=== PATIENT | female | born 1940 | race Caucasian/White ===

== ENCOUNTER → 2024-05-22 | Outpatient (CLI) | payer MEDICARE, SELFPAY ==
[2024-05-22 09:36] LABS: Anion Gap 8 (7-16); BUN/Creatinine Ratio 24 Ratio (12-20); Blood Urea Nitrogen 24 mg/dL (9-23); Calcium 9.7 mg/dL (8.3-10.6); Carbon Dioxide 28.8 mMol/L (20.0-31.0); Chloride 104 mMol/L (98-107); Glucose 141 mg/dL (74-106); Osmolality,Calculated 287 (275-295); Potassium 4.4 mMol/L (3.4-5.1); Sodium 141 mMol/L (136-145); eGFR 55 See Note
[2024-05-22 09:47] LABS: Glucose Estimated Average 143 mg/dL (80-131); Hemoglobin A1C 6.6 % Hgb (4.8-6.0)
== END | disposition home or self-care (01) ==
PROVIDERS: PCP Nurse Practitioner Family; Referring Provider Nurse Practitioner Family; Visit Provider Nurse Practitioner Family
DX: E11.9 Type 2 diabetes mellitus without complications (principal)
CPT/HCPCS: 36415; 80048; 83036

== ENCOUNTER → 2024-09-05 | Outpatient (CLI) | payer MEDICARE, SELFPAY ==
--- NOTE | 2024-09-05 10:37 | XR_ITS ---
Examination: Lumbar spine, 5 views Technique: Lumbar spine AP, lateral, coned lateral lower lumbar spine, bilateral obliques 5 views Exam date and time: September 05, 2024 1044 hours Comparison October 12, 2022 INDICATIONS: Patient fell 8 years ago with injury to lower back, lower back pain FINDINGS: Prominent osteopenia Lumbar levoscoliosis 20 degrees Advanced diffuse facet arthropathy Heavy abdominal aortic calcification Mild chronic osteoporotic wedging L5 L2, L1, moderate chronic osteoporotic compression T12 Diffuse lumbar degenerative disc disease, advanced L1-L2 IMPRESSION: Diffuse lumbar degenerative disc disease, advanced L1-L2
--- NOTE | 2024-09-05 10:37 | XR_ITS ---
Examination:Left hip AP, lateral, AP pelvis 3 views Technique: Hip AP lateral, AP pelvis, 3 views Exam date and time:September 05, 2024 1044 hours INDICATION: Patient fell 8 years ago with injury to the left hip, persistent left hip pain FINDINGS: Prominent osteopenia No right or left hip fracture or dislocation Moderate narrowing hip joints Bones of the pelvis intact IMPRESSION: Moderate bilateral hip osteoarthritis.
--- NOTE | 2024-09-05 10:37 | XR_ITS ---
Examination: Shoulder,right, 3 views Technique: Shoulder AP internal rotation, AP external rotation, Y view shoulder, 3 views Exam date and time :September 05, 2024 1044 hours INDICATIONS: Onset right shoulder pain beginning 2 years ago. FINDINGS: Prominent osteopenia Moderate narrowing glenohumeral joint No fracture or dislocation IMPRESSION: Moderate narrowing glenohumeral joint
== END | disposition home or self-care (01) ==
LOC: CDIM 10:20
PROVIDERS: PCP Family Medicine; Referring Provider Nurse Practitioner Family; Visit Provider Nurse Practitioner Family
DX: M16.0 Bilateral primary osteoarthritis of hip (principal); M25.811 Other specified joint disorders, right shoulder; M51.360 Other intervertebral disc degeneration, lumbar region with discogenic back pain only
CPT/HCPCS: 72110; 73030; 73502

== ENCOUNTER → 2025-01-29 | Outpatient (CLI) | payer MEDICARE, SELFPAY ==
--- NOTE | 2025-01-29 13:27 | XR_ITS ---
Examination: Abdomen AP single view Technique: AP portable supine abdomen, single view Exam date and time: January 29, 2025, 1330 hours INDICATIONS: Constipation 2 weeks. FINDINGS: Moderate to large amounts of stool throughout the colon Clips in the right left abdomen and upper pelvis No free air Severe osteopenia Moderate bilateral hip osteoarthritis No renal calculi IMPRESSION: Moderate to large amounts of stool throughout the colon
[2025-01-29 14:23] LABS: Basophils # (Auto) 0.0 Thou/mm3 (0.0-0.2); Basophils % (Auto) 1 % (0-2.5); Eosinophils # (Auto) 0.2 Thou/mm3 (0.0-0.5); Eosinophils % (Auto) 3 % (0-10); Hematocrit 42.1 % (36.0-46.0); Hemoglobin 13.6 g/dL (12.0-16.0); Immature Granulocytes Auto 0.02 Thou/mm3 (0.00-0.00); Lymphocytes # (Auto) 2.1 Thou/mm3 (1.0-4.8); Lymphocytes % (Auto) 31 % (10-50); Mean Corpuscular HGB Conc 32.3 g/dl (31.0-37.0); Mean Corpuscular Hemoglobin 30.8 pg (25.0-35.0); Mean Corpuscular Volume 95 fL (80-100); Monocytes # (Auto) 0.8 Thou/mm3 (0.0-0.8); Monocytes % (Auto) 12 % (0-12); Neutrophils # (Auto) 3.6 Thou/mm3 (1.8-7.7); Neutrophils % (Auto) 54 % (37-80); Nucleated Red Blood Cell # 0.00 Thou/mm3 (0.00-0.00); Nucleated Red Blood Cell % 0 /100 WBC (0); Platelet Count 130 Thou/mm3 (140-440); RDW Standard Deviation 49.3 fL (36.4-46.3); Red Blood Count 4.42 Miln/mm3 (4.00-5.20); White Blood Count 6.7 Thou/mm3 (3.6-11.0)
[2025-01-29 14:36] LABS: Alanine Aminotransferase 20 U/L (10-49); Albumin, Serum 4.4 gm/dL (3.4-4.8); Albumin/Globulin Ratio 1.8 (1.2-2.2); Alkaline Phosphatase 55 U/L (46-116); Anion Gap 9 (7-16); Aspartate Amino Transferase 25 U/L (0-34); BUN/Creatinine Ratio 13 Ratio (12-20); Bilirubin,Total 0.5 mg/dL (0.3-1.2); Blood Urea Nitrogen 14 mg/dL (9-23); Calcium 10.2 mg/dL (8.3-10.6); Calcium (Corrected) 10.2 mg/dL (8.5-10.1); Carbon Dioxide 28.7 mMol/L (20.0-31.0); Chloride 105 mMol/L (98-107); Creatinine (Component) 1.1 mg/dL (0.6-1.3); Globulin 2.5 gm/dL (2.3-3.5); Glucose 95 mg/dL (74-106); Osmolality,Calculated 285 (275-295); Potassium 4.6 mMol/L (3.4-5.1); Sodium 143 mMol/L (136-145); Total Protein 6.9 gm/dL (5.7-8.2); eGFR 49 See Note
== END | disposition home or self-care (01) ==
LOC: CDIM 12:34
PROVIDERS: Referring Provider Nurse Practitioner Family; Visit Provider Nurse Practitioner Family
DX: K59.00 Constipation, unspecified (principal)
CPT/HCPCS: 36415; 74018; 80053; 85025

== ENCOUNTER 2025-02-01 12:22 | Emergency (ER) | payer MEDICARE, SELFPAY ==
[2025-02-01 12:23] VITALS: BMI 31.7
[2025-02-01 12:42] VITALS: BP 145/69; PULSE 76; RESP 18; TEMP 36.6; O2SAT 99
--- NOTE | 2025-02-01 12:50 | XR_ITS ---
Examination: CT abdomen and pelvis without contrast. Coronal 3-D reconstructions. Sagittal 2-D reconstructions. Date and time of exam:February 01, 2025, 1256 hours INDICATIONS: Left-sided abdominal pain and constipation beginning 3 weeks ago CTDI: vol (mGy): 9.67 DLP: (mGycm): 576 Technique: Axial images of the abdomen have been obtained, 3 mm slice thickness Intravenous contrast material has not been administered. Low dose protocols were performed. One or more of the following dose reduction techniques were used; automated exposure control, adjustment of the mA and/or KV according to patient size, use of iterative reconstruction technique. Findings: 3 mm pulmonary nodule right lower lobe image 44 5 mm pulmonary nodule with calcification right lower lobe image 75 5 mm pulmonary nodule right lower lobe image 82 Liver mildly irregular in contour 17 mm calcification at the anterior margin of the right lobe the liver image 65 Absent gallbladder No common bile duct stones No pancreatic mass. Moderate renal scar formation Abdominal aortic calcification no aneurysmal dilatation No bowel obstruction No diverticulitis No pericecal inflammatory change Absent uterus No pelvic mass Contracted urinary bladder with minimal urinary bladder wall thickening Advanced degenerative disc disease thoracic and upper lumbar spine Prominent osteopenia IMPRESSION: Pulmonary nodules in the right lower lobe as above, recommend PA lateral chest follow-up Suspect primary hepatocellular disease Moderate bilateral renal parenchymal scar formation, no hydronephrosis or ureteral calculi No CT findings of bowel obstruction or diverticulitis
--- NOTE | 2025-02-01 12:51 | PD.EDRME ---
Rapid Medical Screening Exam RME Arrival date/time: 02/01/25 12:22 84-year-old female with a history of type 2 diabetes, hypertension, hyperlipidemia presents to the emergency room with a chief complaint of diffuse 8 out of 10 abdominal pain. Patient also states she has been dealing with constipation, has seen her primary care provider and prescribed laxatives that have not worked. I have greeted and performed a focused initial assessment of this patient. A comprehensive ED assessment and evaluation of the patient, analysis of all test results, and completion of the medical decision making process will be conducted by additional ED providers. Chief Complaint: Abdominal Pain Time Seen by Provider: 02/01/25 12:43 Vital signs: Vital Signs Temperature 98 F 02/01/25 12:42 Pulse Rate 76 02/01/25 12:42 Respiratory Rate 18 02/01/25 12:42 Blood Pressure 145/69 H 02/01/25 12:42 Pulse Oximetry (%) 99 02/01/25 12:42 Oxygen Delivery Method Room Air 02/01/25 12:42 Vital signs reviewed by provider: Yes
[2025-02-01 13:40] LABS: Lactate (Lactic Acid) 1.1 mMol/L (0.4-2.0)
[2025-02-01 13:48] LABS: Basophils # (Auto) 0.0 Thou/mm3 (0.0-0.2); Basophils % (Auto) 1 % (0-2.5); Eosinophils # (Auto) 0.2 Thou/mm3 (0.0-0.5); Eosinophils % (Auto) 3 % (0-10); Hematocrit 41.3 % (36.0-46.0); Hemoglobin 13.2 g/dL (12.0-16.0); Immature Granulocytes Auto 0.01 Thou/mm3 (0.00-0.00); Lymphocytes # (Auto) 1.4 Thou/mm3 (1.0-4.8); Lymphocytes % (Auto) 25 % (10-50); Mean Corpuscular HGB Conc 32.0 g/dl (31.0-37.0); Mean Corpuscular Hemoglobin 30.3 pg (25.0-35.0); Mean Corpuscular Volume 95 fL (80-100); Monocytes # (Auto) 0.6 Thou/mm3 (0.0-0.8); Monocytes % (Auto) 11 % (0-12); Neutrophils # (Auto) 3.4 Thou/mm3 (1.8-7.7); Neutrophils % (Auto) 60 % (37-80); Nucleated Red Blood Cell # 0.00 Thou/mm3 (0.00-0.00); Nucleated Red Blood Cell % 0 /100 WBC (0); Platelet Count 114 Thou/mm3 (140-440); RDW Standard Deviation 47.8 fL (36.4-46.3); Red Blood Count 4.35 Miln/mm3 (4.00-5.20); White Blood Count 5.6 Thou/mm3 (3.6-11.0)
[2025-02-01 13:52] LABS: Collection Type, Urine Clean Catch
[2025-02-01 13:58] LABS: Bilirubin,Urine Negative (Negative); Blood,Urine Negative (Negative); Clarity,Urine Clear (Clear/Hazy); Color,Urine Colorless (Lt Yel-Yel); Glucose, Urine Negative (Negative); Ketones,Urine Negative (Negative); Leukocyte Esterase,Urine Negative (Negative); Nitrite,Urine Negative (Negative); PH,Urine 6.0 (5.0-7.0); Protein,Urine Negative (Neg - Trace); RBC,Urine 1 /hpf (0-3); Specific Gravity,Urine 1.007 (1.001-1.035); Squamous Epithelial Cell,Urine 1 /hpf (0-5); Urobilinogen,Urine Negative mg/dL (0.0-1.0); WBC,Urine 4 /hpf (0-5)
[2025-02-01 14:08] LABS: Alanine Aminotransferase 20 U/L (10-49); Albumin, Serum 4.3 gm/dL (3.4-4.8); Albumin/Globulin Ratio 1.7 (1.2-2.2); Alkaline Phosphatase 68 U/L (46-116); Anion Gap 8 (7-16); Aspartate Amino Transferase 27 U/L (0-34); BUN/Creatinine Ratio 14 Ratio (12-20); Bilirubin,Total 0.4 mg/dL (0.3-1.2); Blood Urea Nitrogen 15 mg/dL (9-23); C-Reactive Protein < 0.5 mg/dL (0.0-0.9); Calcium 9.5 mg/dL (8.3-10.6); Calcium (Corrected) 9.5 mg/dL (8.5-10.1); Carbon Dioxide 29.1 mMol/L (20.0-31.0); Chloride 104 mMol/L (98-107); Creatinine (Component) 1.1 mg/dL (0.6-1.3); Estimated Creatinine Clearance 38.5 mL/min (>60); Globulin 2.5 gm/dL (2.3-3.5); Glucose 129 mg/dL (74-106); Lipase 27 U/L (12-53); Osmolality,Calculated 284 (275-295); Potassium 4.6 mMol/L (3.4-5.1); Sodium 141 mMol/L (136-145); Total Protein 6.8 gm/dL (5.7-8.2); eGFR 49 See Note
--- NOTE | 2025-02-01 14:45 | PD.EDABDPN ---
ED Abdominal Pain RME/HPI General Chief Complaint: Abdominal Pain Stated complaint: UPPER ABD PAIN/LOWER PAIN, CONSTIPATION Time seen by provider: 02/01/25 12:43 Arrival date/time: 02/01/25 12:22 RME / HPI RME / HPI narrative: 02/01/25 12:22 84-year-old female with a history of type 2 diabetes, hypertension, hyperlipidemia presents to the emergency room with a chief complaint of diffuse 8 out of 10 abdominal pain. Patient also states she has been dealing with constipation, has seen her primary care provider and prescribed laxatives that have not worked. I have greeted and performed a focused initial assessment of this patient. A comprehensive ED assessment and evaluation of the patient, analysis of all test results, and completion of the medical decision making process will be conducted by additional ED providers. DR. GARRIDO MAIN ED EVALUATION 84 year old female with history of hypertension, diabetes, hyperlipidemia, hypothyroidism presents to the ED, referred by her PCP Gabriela Cornell NP, for evaluation of abdominal pain occurring intermittently over the last month and constipation x 3 weeks. Patient states she consulted her PCP 3 days ago for constipation and abdominal pain. States she was started on Lactulose and had a small bowel movement 2 days ago (amount of stool was her usual amount). However, states pain and constipation have not improved. Followed up with PCP today and during her exam patient had tenderness on abdomen and advised to come here. Abdominal pain is located most to epigastric region and across lower abdomen, rating 8/10 in severity. No other associated symptoms reported. Denies fevers, chills, vomiting, or urinary symptoms. Patient mentioned she has history of constipation and at baseline has one bowel movement a day while taking laxatives. Related Data Home Medications ?Medication ?Instructions ?Recorded ?Confirmed sertraline 50 mg tablet (Zoloft) 50 mg PO QDAY Depression #0 tabs 03/11/14 02/24/19 cholecalciferol (vitamin D3) 50 2,000 unit PO QDAY 09/28/17 02/24/19 mcg (2,000 unit) capsule (Vitamin D3) glipizide 10 mg tablet 10 mg PO QAM 09/28/17 02/24/19 glipizide 5 mg tablet, extended 5 mg PO HS 09/28/17 02/24/19 release 24 hr levothyroxine 25 mcg tablet 25 mcg PO QDAY 09/28/17 02/24/19 losartan 50 mg-hydrochlorothiazide 1 tab PO QDAY 09/28/17 02/24/19 12.5 mg tablet mirabegron 25 mg tablet,extended 25 mg PO QDAY 09/28/17 02/24/19 release 24 hr (Myrbetriq) metformin 500 mg tablet 500 mg PO BID 08/02/18 02/24/19 rosuvastatin 20 mg tablet 20 mg PO QDAY 08/02/18 02/24/19 Previous Rx's ?Medication ?Instructions ?Recorded magnesium citrate 150 ml PO BID PRN constipation 5 02/01/25 days #296 mL polyethylene glycol 3350 17 17 g PO BID 10 days #340 grams 02/01/25 gram/dose oral powder (Miralax) Allergies Allergy/AdvReac Type Severity Reaction Status Date / Time No Known Allergies Allergy Verified 02/01/25 12:26 Review of Systems Review of Systems Systems Reviewed: All systems reviewed, normal except as documented Past Medical History Past Medical History CARDIAC: Positive Cardiac Disorders, Hypercholesterolemia (TAKES MED), Edema (RIGHT LOWER LEG HAS MASS) and Hypertension (TAKES LOSARTAN) GASTROINTESTINAL: Positive Gastrointestinal Disorders and Gall Bladder Disease (OPEN) REPRODUCTIVE: Positive Breast Cancer (1988 LEFT) and Previous Pregnancies (X7) MUSCULOSKELETAL: Positive Musculoskeletal Disorders, Arthritis and Fractures (BACK 12/2013) ENT: Positive Cataracts (LEFT) ENDOCRINE: Positive Endocrine Disorders, Diabetes Mellitus Type 2 (TAKES PO MED) and Hypothyroidism (TAKES PO MED) PSYCHO/SOCIAL: Positive Depression and Anxiety OTHER HISTORY: Positive Chemotherapy (1988 DUE TO BREAST CA LEFT), Radiation Therapy (1988 DUE TO BREAST CA LEFT), Chicken Pox, Measles, Mumps and Breast Cancer (1988 LEFT) Family History FAMILY HISTORY: Positive Family Gastrointestinal Problems (FATHER), Family Cancer (MOTHER (LUNG),FATHER(STOMACH, SKIN),SISTER (UTERINE CA)) and Family Surgery (FATHER,SISTER) Surgical History SURGICAL: Positive Eye Surgery (LEFT EYE CATARACT), Abdominal Surgery (cholecystectomy ), Lumpectomy (LEFT), Hysterectomy (PARTIAL) and Tubal Ligation Social History SMOKING STATUS: Never smoker SUBSTANCE USE: does not use ED Exam Narrative Physical exam: Constitutional: Awake, alert, nontoxic, no acute distress HEENT: Normocephalic, atraumatic, extraocular movements intact. Neck: Supple CV: Regular rate and rhythm, no murmurs/rubs/gallops Lungs: Clear to auscultation BL, no respiratory distress. Abd: Soft, minimal discomfort to palpation of left upper abdomen, ND, no HSM noted to palpation, no rebound or guarding noted Neuro: AAOx3, no acute neuro deficit noted. Skin: Warm, dry, intact Course Course Course Narrative: 84-year-old female coming in for evaluation of abdominal pain with constipation. Symptoms ongoing for weeks to a month or more. Workup today was generally benign with no acute findings on CT scan. Patient notes her last bowel movement was a couple days ago. Is vitally stable with a very benign exam. Will advise on regimen at home for constipation in addition to adequate changes to her diet to ensure sufficient fiber content and fluid intake. She is stable for discharge home to follow-up with her PCP outpatient. Quality Measures none Orders Category Date Time Status CT Screening NOW Care 02/01/25 13:[address] abdomen pelvis w con Stat Exams 02/01/25 13:[address] abdomen pelvis wo con Stat Exams 02/01/25 12:50 Completed CBC Stat Lab 02/01/25 13:16 Completed CMP [Comprehensive Metabolic Panel] Stat Lab 02/01/25 13:16 Completed CRP [C-Reactive Protein] Stat Lab 02/01/25 13:16 Completed Lactate (Lactic Acid) Stat Lab 02/01/25 13:16 Completed Lipase Stat Lab 02/01/25 13:16 Completed UA [Urinalysis] Stat Lab 02/01/25 13:31 Completed Urine Culture Stat Lab 02/01/25 13:31 Received Vital Signs Vital signs: Vital Signs Temperature 98 F 02/01/25 12:42 Pulse Rate 76 02/01/25 12:42 Respiratory Rate 18 02/01/25 12:42 Blood Pressure 145/69 H 02/01/25 12:42 Pulse Oximetry (%) 99 02/01/25 12:42 Oxygen Delivery Method Room Air 02/01/25 12:42 Pulse ox is 99% on room air which is adequate. Abdominal Pain MDM Patient data External records reviewed:: [facility] previous records Clinical information provided by:: patient Social determinants that could affect healthcare access:: none Patient has the following chronic illnesses:: hypertension, diabetes, hyperlipidemia, hypothyroidism chronic hypertension How is presenting disease/condition affected by chronic disease/condition?: exacerbated by Evaluation data The following diagnostics were reviewed and interpreted by me:: lab results and radiology exam(s) Lab and/or radiology exams considered but not ordered:: None Interpretation Summary: Ordering Physician: Vinay Urrutia Date of Service: 02/01/25 Procedure(s): CT abdomen pelvis wo con Accession Number(s): [id number] cc: Vinay Urrutia; Darrius Redd MD~ Examination: CT abdomen and pelvis without contrast. Coronal 3-D reconstructions. Sagittal 2-D reconstructions. Date and time of exam:February 01, 2025, 1256 hours INDICATIONS: Left-sided abdominal pain and constipation beginning 3 weeks ago CTDI: vol (mGy): 9.67 DLP: (mGycm): 576 Technique: Axial images of the abdomen have been obtained, 3 mm slice thickness Intravenous contrast material has not been administered. Low dose protocols were performed. One or more of the following dose reduction techniques were used; automated exposure control, adjustment of the mA and/or KV according to patient size, use of iterative reconstruction technique. Findings: 3 mm pulmonary nodule right lower lobe image 44 5 mm pulmonary nodule with calcification right lower lobe image 75 5 mm pulmonary nodule right lower lobe image 82 Liver mildly irregular in contour 17 mm calcification at the anterior margin of the right lobe the liver image 65 Absent gallbladder No common bile duct stones No pancreatic mass. Moderate renal scar formation Abdominal aortic calcification no aneurysmal dilatation No bowel obstruction No diverticulitis No pericecal inflammatory change Absent uterus No pelvic mass Contracted urinary bladder with minimal urinary bladder wall thickening Advanced degenerative disc disease thoracic and upper lumbar spine Prominent osteopenia IMPRESSION: Pulmonary nodules in the right lower lobe as above, recommend PA lateral chest follow-up Suspect primary hepatocellular disease Moderate bilateral renal parenchymal scar formation, no hydronephrosis or ureteral calculi No CT findings of bowel obstruction or diverticulitis Dictated By: Darrius Redd MD Signed By: <Electronically signed by Darrius Redd MD in OV> 02/01/25 1319 Medications / Prescriptions Medications or Prescriptions considered but not ordered:: None Medication administrations:: None Consultations Consultation(s) initiated? (list below): No Diagnosis Differential diagnosis abdominal pain: abdominal pain, constipation and small bowel obstruction Most likely diagnosis given after review of the tests above:: Constipation Admission Indicated Admission indicated?: not indicated Admission Request Was there a request for admission?: No Disposition Plan Disposition Plan: Discharge Discharge Attestation Discharge Attestation: The patient and all family members were given an opportunity to ask questions and understood the discharge instructions. Discharge instructions specifically effects, indications for sooner follow up or return to the emergency department, and the expected course of current diagnosis. Patient condition: Stable Discharge Plan Plan Patient Disposition: HOME (Self Care) Patient condition on transfer: Stable Prescriptions/Referrals Prescriptions/Med Rec: New polyethylene glycol 3350 [Miralax] 17 gram/dose powder 17 g PO BID 10 Days Qty: 340 0RF Rx Instructions: Take 3 times daily for 2 days, then twice daily for 2 days, then daily for 2 days, then half dose daily prn constipation magnesium citrate Solution 150 ml PO BID PRN (Reason: constipation) 5 Days Qty: 296 1RF Discontinued hydrocodone-acetaminophen [[place]] 5-325 mg tablet 1 tab PO Q4H MDD 6 PRN (Reason: pain) Qty: 10 0RF zinc 50 mg Tablet 50 mg PO QDAY ciprofloxacin HCl [Cipro] 500 mg tablet 500 mg PO BID Qty: 14 0RF ondansetron HCl 4 mg tablet 4 mg PO Q8H Qty: 14 0RF No Action sertraline [Zoloft] 50 MG tablet 50 mg PO QDAY Qty: 0 levothyroxine 25 mcg Tablet 25 mcg PO QDAY glipizide 10 mg Tablet 10 mg PO QAM losartan-hydrochlorothiazide 50-12.5 mg Tablet 1 tab PO QDAY Myrbetriq 25 mg Tablet Extended Release 24 Hr 25 mg PO QDAY glipizide 5 mg Tablet Extended Release 24 Hr 5 mg PO HS cholecalciferol (vitamin D3) [Vitamin D3] 2,000 unit Capsule 2,000 unit PO QDAY metformin 500 mg Tablet 500 mg PO BID rosuvastatin 20 mg Tablet 20 mg PO QDAY Referrals: Gabriela Cornell NP [Primary Care Provider] - In 1 week Problem List Clinical Impression: Constipation Patient/Caregiver Discharge Instructions Diet Instructions: Increase the amount of fiber in your diet as per the dietary instructions included in your packet Education Materials: Treating Constipation, Eating a High-Fiber Diet, ED Constipation (Adult) Additional Instructions: The following medications can be used for constipation: Lactulose?take as prescribed by your PCP at this point in time. If no improvement, can add the MiraLAX 3 times daily for 2 days, then twice daily for 2 days, then once daily for 2 days then as needed. This can be adjusted down if there is a sufficient response before completing titration down. May use magnesium citrate half a bottle twice daily as needed for constipation if no response from both the lactulose and MiraLAX. There are other medications that can be used but you should discuss with your primary doctor for additional meds. Some general health principles that can help you are the [employer] principles: Nutrition (eat a plant-based diet, avoiding meats in general, avoiding highly processed foods) Exercise (Daily exercise/walks as tolerated) Water (Drink adequate fresh water to maintain hydration, concentrating on water rather than on soda, coffee, tea, juice, etc for hydration) [place] (Spend time - 15-20 minutes or so with skin exposed in the chemical treatment plant technician and late evening sun for Vitamin D health benefits) [place] (Avoid alcohol, illicit drugs, caffeinated beverages, smoking, etc) Air (Deep breathing exercises in the early mornings in fresh air) Rest (Adequate rest at night, going to bed a few hours before midnight and avoiding all screens/television/loud music in the time right before going to bed, also avoiding heavy meals just prior to going to bed) Trust in God (Spend time daily in Bible study and prayer - health benefits in contemplation of God's true character) Additional resources that can benefit: www.[employer], look under resources and seminars. Print Language: Micronesian Stand Alone Forms: [employer]ie Award Info., Patient Portal Info Letter
[2025-02-01 16:09] VITALS: BP 153/81; PULSE 60; RESP 17; TEMP 36.5; O2SAT 96
[2025-02-01] MEDS: DICYCLOMINE INJ 10 MG/ML 2ML VIAL IM (16:45)
[2025-02-01] MEDS: ACETAMINOPHEN 500 MG TABLET 1000 MG PO (16:45)
== END 2025-02-01 17:02 | disposition home or self-care (01) ==
PROVIDERS: Nurse Practitioner Family; Emergency Provider Family Medicine; PCP Nurse Practitioner Family
DX: K59.00 Constipation, unspecified (principal); E03.9 Hypothyroidism, unspecified; E11.9 Type 2 diabetes mellitus without complications; E78.5 Hyperlipidemia, unspecified; I10 Essential (primary) hypertension; Z79.84 Long term (current) use of oral hypoglycemic drugs; R91.8 Other nonspecific abnormal finding of lung field; N28.89 Other specified disorders of kidney and ureter
CPT/HCPCS: 36415; 74176; 80053; 81001; 83605; 83690; 85025; 86140; 87077; 87086; 87186; 96372; 99284; J0500; A9270

== ENCOUNTER → 2025-03-14 | Outpatient (CLI) | payer MEDICARE, SELFPAY ==
--- NOTE | 2025-03-14 | XR_ITS ---
EXAMINATION: PA lateral chest 2 views TECHNIQUE: Upright PA lateral chest 2 views Date and time: March 14, 2025, 2004 hours, comparison February 03, 2023 INDICATIONS: Parenchymal disease in the lingular segment on chest February 03, 2023 FINDINGS: Normal heart size Right cardiophrenic angle fat pad Stable scarring in the lingular segment No interval pneumonia or pulmonary edema IMPRESSION: No interval pneumonia or pulmonary edema
== END | disposition home or self-care (01) ==
PROVIDERS: PCP Family Medicine; Referring Provider Nurse Practitioner Family; Visit Provider Radiology Diagnostic Radiology
DX: R91.8 Other nonspecific abnormal finding of lung field (principal); N39.0 Urinary tract infection, site not specified
CPT/HCPCS: 71046; 87077; 87086; 87186